=== PATIENT | male | born 1940 | race Hispanic/Latino ===

== ENCOUNTER 2018-03-11 13:28 | Inpatient (IN) | payer MEDICARE ==
[~2018-03-11] VITALS: Ht 157.5 cm; Wt 90.0 kg
[~2018-03-11 13:28] MED LIST: Z.0.AMARYL2 MG PO; Z.0.HYDROCHLOROTHIA2; Z.0.LISINOPRIL10 MG PO; Z.0.LOVASTATIN40 MG PO; Z.0.NIASPAN500 MG PO; Z.0.PANTOPRAZOLE SO4 PO
[2018-03-11] MEDS ORDERED: ACETAMINOPHEN 325 MG TAB PO ONE (14:00)
--- NOTE | 2018-03-11 14:26 | Diagnostic Imaging Report ---
PROCEDURE: Frontal and lateral views of the chest. COMPARISON: Patients [facility], , CHEST SINGLE (PORTABLE), 02/03/2017, 21:47. INDICATIONS: DIZZY, CHEST PAIN FOR 1 WEEK FINDINGS: Lines/tubes: None. Lungs: Mild bibasilar subsegmental atelectasis. There is no evidence of pneumonia or pulmonary edema. Pleura: There is no pleural effusion or pneumothorax. Heart and mediastinum: The heart and the mediastinum are normal. Bones: No acute bony abnormality. IMPRESSION: 1. Mild bibasilar subsegmental atelectasis Sharon Cid M.D. Dictated by: Sharon Cid M.D. on 03/11/2018 at 14:28 Electronically approved by: Sharon Cid M.D. on 03/11/2018 at 14:28
[2018-03-11] MEDS ORDERED: SODIUM CHLORIDE 0.9% 500ML 500 ML IV ONE ×2 (14:45→18:00)
[2018-03-11 14:49] LABS: BASOPHILS % 0.1 % (0.0-1.0); EOSINOPHILS % 0.4 % (0.0-6.0); HEMATOCRIT 41.3 % (38.2-49.6); HEMOGLOBIN 14.4 g/dL (14.0-18.0); LYMPHOCYTES # (AUTO) 0.2 (1.0-3.2); LYMPHOCYTES % 2.6 % (18.0-39.1); MEAN CORPUSCULAR HEMOGLOBIN 30.8 pg (28-32); MEAN CORPUSCULAR HGB CONC 34.9 g/dL (31-35); MEAN CORPUSCULAR VOLUME 88.4 fL (81-99); MONOCYTES # (AUTO) 0.4 (0.2-0.8); MONOCYTES % 4.7 % (4.4-11.3); NEUTROPHILS # (AUTO) 7.4 (2.1-6.9); NEUTROPHILS % 91.8 % (38.7-80.0); PLATELET COUNT 178 x10e3/uL (140-360); RED BLOOD COUNT 4.67 x10e6/uL (4.3-5.7); RED CELL DISTRIBUTION WIDTH 13.3 % (11.7-14.4)
[2018-03-11 15:10] LABS: ALBUMIN 3.3 g/dL (3.5-5.0); ALBUMIN/GLOBULIN RATIO 0.8 (0.8-2.0); ANION GAP 15.5 mmol/L (8-16); CALCIUM 9.2 mg/dL (8.4-10.2); CREATININE, SERUM 1.73 mg/dL (0.72-1.25); POTASSIUM 3.5 mmol/L (3.5-5.1)
[2018-03-11] MEDS ORDERED: SODIUM CHLORIDE 0.9% 500ML 500 ML ONE (17:07)
--- NOTE | 2018-03-11 17:55 | Diagnostic Imaging Report ---
EXAM: Right Upper Quadrant Ultrasound INDICATION: Elevated liver enzymes COMPARISON: None. TECHNIQUE: Transverse and longitudinal images of the right upper abdomen were obtained. FINDINGS: Liver: Size: 15.2 cm in the right midclavicular line, normal Appearance: Mildly increased echogenicity, smooth contour Mass: No focal masses Gallbladder: Stones/Sludge: Shadowing calculi are present within the gallbladder lumen. There is also ringdown artifact along the gallbladder wall which may represent adenomyomatosis. Wall: 0.5 cm, thickened. Appearance: No wall thickening, pericholecystic fluid or hydrops. Sonographic Hanson's Sign: Negative Bile Ducts: Intrahepatic Ducts: No dilatation Extrahepatic Ducts: Common bile duct measures 0.4 cm, no dilatation Pancreas: Visualized portions of the pancreatic head, neck and proximal body are normal. Kidneys: Length: Right 12.6 cm Echogenicity: Normal Collecting System: No hydronephrosis Stone: None Cyst/Mass: None Vessels: Aorta: Visualized portions are normal Inferior Vena Cava: Visualized portions are normal Main Portal Vein: 0.9 cm, normal size with hepatopetal flow. Free Fluid: No ascites or pleural effusion IMPRESSION: 1. Cholelithiasis. Gallbladder wall thickening may be in part related to adenomyomatosis, however, chronic cholecystitis is within the differential diagnosis. No biliary dilatation. 2. Mildly increased echogenicity of the hepatic parenchyma may represent steatosis. Signed by: Dr. Sharon Cid M.D. on 03/11/2018 5:51 PM
[2018-03-11] MEDS ORDERED: SODIUM CHLORIDE 0.9% 1000ML 500 ML IV SCH (18:00)
[2018-03-11 18:07] LABS: CLARITY,URINE SL CLOUDY (CLEAR); COLOR,URINE YELLOW (YELLOW); LEUKOCYTE ESTERASE ,URINE NEGATIVE (NEGATIVE); NITRITE,URINE NEGATIVE (NEGATIVE)
[2018-03-11 18:08] LABS: BILIRUBIN,URINE 1+ (NEGATIVE); KETONES,URINE NEGATIVE (NEGATIVE); PROTEIN,URINE DIPSTICK NEGATIVE (NEGATIVE); URINE UROBILINOGEN 1 mg/dL (0.2 - 1)
[2018-03-11 18:16] LABS: EPITHELIAL CELLS,URINE RARE /LPF; MUCUS,URINE MODERATE (RARE); RBC,URINE 0-5 /HPF (0-5); WBC,URINE (MAN) 0-5 /HPF (0-5)
[2018-03-11] MEDS ORDERED: ONDANSETRON HCL INJ 2 MG/ML VIAL IV PRN (18:30)
[2018-03-11] MEDS ORDERED: ACETAMINOPHEN 325 MG TAB PO PRN (18:30)
[2018-03-11] MEDS ORDERED: ONDANSETRON HCL 4 MG ORAL DISINTEGRATING TAB PO PRN (18:45)
[2018-03-11] MEDS: CEFEPIME HCL 1 GM VIAL IV SCH (19:14)
[2018-03-11] MEDS: METRONIDAZOLE 500MG/NS 100ML 100 ML IV SCH (19:14)
[2018-03-11] MEDS: SODIUM CHLORIDE 0.9% 1000ML 1,000 ML IV SCH (19:14)
--- OUTSIDE RECORDS SUMMARY | 2018-03-11 20:09 | XMS REPORT ---
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 Allergies, Adverse Reactions, Alerts This patient has no known allergies or adverse reactions. Medications This patient has no known medications. Results Test Description Test Time Test Comments Text Results Atomic Results Result Comments CHEST 2 VIEWS [place] [address] Patient Name: JOE NEGRETE MR #: [id number] : 1940 Age/Sex: 77/M Req #: [id number] Adm Physician: Ordered by: HIRAL SEYMOUR MD Report #: [id number] Location: ER Room/Bed: Procedure: [id number] DX/CHEST 2 VIEWS Exam Date: Exam Time: REPORT STATUS: Signed PROCEDURE: Frontal and lateral views of the chest. COMPARISON: [facility], DX, CHEST SINGLE (PORTABLE), 2016, 21:47. INDICATIONS: DIZZY, CHEST PAIN FOR 1 WEEK FINDINGS: Lines/tubes: None. Lungs: Mild bibasilar subsegmental atelectasis. There is no evidence of pneumonia or pulmonary edema. Pleura: There is no pleural effusion or pneumothorax. Heart and mediastinum: The heart and the mediastinum are normal. Bones: No acute bony abnormality. IMPRESSION: 1. Mild bibasilar subsegmental atelectasis Sharon Benitez M.D. Dictated by: Sharon Benitez M.D. on 03/11/2018 at 14:28 Electronically approved by: Sharon Benitez M.D. on 03/11/2018 at 14:28 Dictated By: YEISON BENITEZ MD, MD 27 COPY TO: HIRAL SEYMOUR MD US ABDOMEN LIMITED [place] [address] Patient Name: JOE NEGRETE MR #: [id number] : 1940 Age/Sex: 77/M Req #: [id number] Adm Physician: Ordered by: HIRAL SEYMOUR MD Report #: [id number] Location: ER Room/Bed: Procedure: [id number] US/US ABDOMEN LIMITED Exam Date: 03/11/18 Exam Time: 1700 REPORT STATUS: Signed EXAM: Right Upper Quadrant Ultrasound INDICATION: Elevated liver enzymes COMPARISON: None. TECHNIQUE: Transverse and longitudinal images of the right upper abdomen were obtained. FINDINGS: Liver: Size: 15.2 cm in the right midclavicular line, normal Appearance: Mildly increased echogenicity, smooth contour Mass: No focal masses Gallbladder: Stones/Sludge: Shadowing calculi are present within the gallbladder lumen. There is also ringdown artifact along the gallbladder wall which may represent adenomyomatosis. Wall: 0.5 cm, thickened. Appearance: No wall thickening, pericholecystic fluid or hydrops. Sonographic Hanson's Sign: Negative Bile Ducts: Intrahepatic Ducts: No dilatation Extrahepatic Ducts: Common bile duct measures 0.4 cm, no dilatation Pancreas: Visualized portions of the pancreatic head, neck and proximal body are normal. Kidneys: Length: Right 12.6 cm Echogenicity: Normal Collecting System: No hydronephrosis Stone: None Cyst/Mass: None Vessels: Aorta: Visualized portions are normal Inferior Vena Cava: Visualized portions are normal Main Portal Vein: 0.9 cm, normal size with hepatopetal flow. Free Fluid: No ascites or pleural effusion IMPRESSION: 1. Cholelithiasis. Gallbladder wall thickening may be in part related to adenomyomatosis, however, chronic cholecystitis is within the differential diagnosis. No biliary dilatation. 2. Mildly increased echogenicity of the hepatic parenchyma may represent steatosis. Signed by: Dr. Sharon Benitez M.D. on 03/11/2018 5:51 PM Dictated By: YEISON BENITEZ MD, MD 50 Transcribed By : MARVIN on 03/11/181750 COPY TO: HIRAL SEYMOUR MD
[2018-03-12] VITALS (9 sets, daily range): BP systolic 115–138; BP diastolic 62–69
[2018-03-12] MEDS: METRONIDAZOLE 500MG/NS 100ML 100 ML IV SCH ×3 (03:40→18:30)
[2018-03-12 06:10] LABS: BASOPHILS % 0.4 % (0.0-1.0); EOSINOPHILS # (AUTO) 0.1 (0.0-0.4); EOSINOPHILS % 0.5 % (0.0-6.0); HEMATOCRIT 38.2 % (38.2-49.6); LYMPHOCYTES # (AUTO) 0.8 (1.0-3.2); LYMPHOCYTES % 7.6 % (18.0-39.1); MEAN CORPUSCULAR HEMOGLOBIN 30.8 pg (28-32); MEAN CORPUSCULAR VOLUME 90.5 fL (81-99); MONOCYTES % 9.6 % (4.4-11.3); NEUTROPHILS # (AUTO) 8.5 (2.1-6.9); NEUTROPHILS % 81.6 % (38.7-80.0); PLATELET COUNT 171 x10e3/uL (140-360); RED BLOOD COUNT 4.22 x10e6/uL (4.3-5.7); RED CELL DISTRIBUTION WIDTH 13.5 % (11.7-14.4)
[2018-03-12 06:36] LABS: ALBUMIN 2.8 g/dL (3.5-5.0); ALBUMIN/GLOBULIN RATIO 0.8 (0.8-2.0); ANION GAP 11.1 mmol/L (8-16); CALCIUM 8.6 mg/dL (8.4-10.2); CREATININE, SERUM 1.63 mg/dL (0.72-1.25); POTASSIUM 4.1 mmol/L (3.5-5.1)
[2018-03-12 07:19] LABS: CHOL/HDL RATIO 3.8 (3.9-4.7)
[2018-03-12] MEDS: INSULIN REGULAR, HUMAN 100 UNIT/1 ML 3ML VIAL SQ SCH ×4 (07:30→20:47)
--- NOTE | 2018-03-12 07:48 | History and Physical ---
PRIMARY CARE PHYSICIAN: Dr. Romero CHIEF COMPLAINT: Chills. HISTORY OF PRESENT ILLNESS: This is a 77-year-old man with a history of diabetes mellitus, now developing chills at home prompting visit to the hospital. His chills have been ongoing for about 3 days. No nausea, vomiting or diarrhea. No recent travel in the last 2 months. No sick contacts. No chest pain. PAST MEDICAL HISTORY: Diabetes mellitus, type 2, hypertension, chronic kidney disease, stage 3/diabetic nephropathy. PAST SURGICAL HISTORY: Left nephrectomy, prostatectomy. ALLERGIES: PER ELECTRONIC MEDICAL RECORD. FAMILY HISTORY/SOCIAL HISTORY: Patient is . He has 8 children. Drinks about 1-2 beers on the weekends only. Prior years, he drank more beer, but mainly on the weekends. No cigarettes or illicits. He is a retired [employer]. MEDICATIONS: Per electronic medical record. REVIEW OF SYSTEMS: Denies any dizziness or chest pain. PHYSICAL EXAMINATION VITAL SIGNS: Reviewed. GENERAL: A tired-appearing man resting in bed. HEENT: Anicteric. Pupils respond to light. No oral lesions. CARDIOVASCULAR: Normal S1 and S2. LUNGS: Moderate breath sounds. ABDOMEN: Soft, nontender and nondistended. Negative Hanson's sign. EXTREMITIES: No edema or calf tenderness. NEUROLOGICAL: He is alert and oriented times 3. Moving all extremities. LABS: Reviewed. MEDICATIONS: Reviewed. ASSESSMENT AND PLAN: This is a 77-year-old man with: 1. Acute transaminitis: Rehydrate and reassess. Obtain hepatitis panel. 2. Hyperbilirubinemia: Again, obtain hepatitis panel. Obtain HIDA scan. 3. Cholelithiasis with gallbladder wall thickening. Obtain HIDA scan and further assess. 4. Acute kidney injury in the setting of chronic kidney disease, stage 3/diabetic nephropathy: Rehydrate and reassess. 5. Diabetes mellitus, type 2: Obtain hemoglobin A1c and lipid panel. 6. Severe sepsis present on admission with fever, severe tachycardia and hypotension: Continue Flagyl and cefepime. Follow up cultures. 7. Hyperlipidemia: Continue statin. 8. Prophylaxis: Will continue proton pump inhibitor and use sequential compression devices. 9. Disposition: HIDA scan today. Continue intravenous fluids. Reassess liver function tests after the acute hepatitis panel. Job#: [id number] KYREE
[2018-03-12] MEDS: PANTOPRAZOLE SOD 40 MG TABEC PO SCH (08:17)
[2018-03-12] MEDS ORDERED: NIACIN PO SCH (09:00)
[2018-03-12] MEDS: SODIUM CHLORIDE 0.9% 1000ML 1,000 ML IV SCH ×2 (09:00→17:14)
[2018-03-12] MEDS ORDERED: LOVASTATIN PO SCH (09:00)
[2018-03-12] MEDS: MORPHINE SULFATE 2 MG/ML SYR IV PRN (13:16)
[2018-03-12] MEDS: DEXTROSE 50% SYRINGE 50 ML IV PRN ×2 (14:20→20:37)
--- NOTE | 2018-03-12 15:47 | Diagnostic Imaging Report ---
EXAM: HIDA Scan INDICATION: 77 M with abnormal liver function tests Report: Following the administration of 7.5 mCi of Tc-99m mebrofenin, dynamic images of the abdomen in the anterior projection were obtained through 100 minutes. Perfusion of the liver is normal. Extraction of tracer from the blood pool by the liver parenchyma is mildly prolonged. Tracer does not appear in the biliary tract through 100 minutes. Morphine sulfate 4 mg was given IV slow push after 100 minutes (thinking there might be some tracer in the biliary tract but there was not) and additional imaging was obtained through 30 minutes. Again no tracer is seen in the biliary tract. Impression: Scan findings show cholestasis. Without tracer appearing in the biliary tract, filling of the gallbladder cannot be assessed. Signed by: Dr. Adela Diallo M.D. on 03/12/2018 3:43 PM
[2018-03-12] MEDS: CEFEPIME HCL 1 GM VIAL IV SCH (18:20)
[2018-03-12] MEDS: SIMVASTATIN 20 MG TAB PO SCH (20:46)
[2018-03-12] MEDS: NIACIN 500 MG TABSR PO SCH (20:46)
[2018-03-12] MEDS: DEXTROSE 5%/0.45% SOD CHL 1,000 ML IV SCH (21:15)
[2018-03-13] VITALS (8 sets, daily range): BP systolic 122–147; BP diastolic 62–73
[2018-03-13] MEDS: METRONIDAZOLE 500MG/NS 100ML 100 ML IV SCH ×3 (02:00→17:36)
[2018-03-13] MEDS: SODIUM CHLORIDE 0.9% 1000ML 1,000 ML IV SCH (05:53)
[2018-03-13] MEDS: INSULIN REGULAR, HUMAN 100 UNIT/1 ML 3ML VIAL SQ SCH ×4 (07:30→20:25)
[2018-03-13] MEDS: PANTOPRAZOLE SOD 40 MG TABEC PO SCH (09:47)
[2018-03-13 12:15] LABS: ALBUMIN 2.9 g/dL (3.5-5.0); BILIRUBIN,DIRECT 1.5 mg/dL (0.0-0.5)
--- NOTE | 2018-03-13 15:01 | Diagnostic Imaging Report ---
MRCP CPT code: 81242 History: Chills, type 2 diabetes, stage III diabetic nephropathy, left nephrectomy, cholestatic picture on HIDA scan Comparison: Hida scan 03/12/2018, right upper quadrant ultrasound 03/11/2018. Technique: Multiplanar, multisequence images of the abdomen were obtained per MRCP protocol. 3D volume rendered reformation images of the biliary tree were performed. No intravenous gadolinium was administered. Findings: Biliary tree: No intrahepatic biliary ductal dilatation. Cystic duct is normal in morphology and appears patent.. Common bile duct: Measures 5 mm in diameter and tapers as it approaches the ampulla. No evidence of stricture or beading of the biliary tree. No intraluminal filling defect. The pancreas duct is normal in diameter and morphology. Gallbladder: Present and contains multiple subcentimeter gallstones. There is diffuse gallbladder wall thickening and several punctate foci of increased T2 signal in the fundus which could represent adenomyomatosis. Liver: No significant steatosis. No hepatic mass. Spleen: Normal size and signal without mass Pancreas: Normal T2 signal without mass or ductal dilatation. Kidneys: The left kidney is absent. No mass in the nephrectomy bed. The right kidney demonstrates an extrarenal pelvis and mild perinephric inflammation. High T2 signal lesion in the upper pole measures 12 mm. High T2 signal lesion in the lower pole measures 2 to 3 mm. These were not visible on ultrasound. Adrenal glands: No evidence of mass. Bowel: Stomach and visualized portions of the small bowel and large bowel are normal in diameter with normal wall thickness. Lymph nodes: No lymphadenopathy. Peritoneum/retroperitoneum: No evidence of free fluid or fluid collection. Lung bases: Clear. Bones: Diffuse degenerative disc disease. There is mild extra scoliosis of the lumbar spine. Marrow signal is normal. No focal osseous lesions. Soft tissues: Hernia through the posterolateral left abdominal wall contains fat with an aperture of 3.2 cm. IMPRESSION: 1. No evidence of choledocholithiasis, biliary ductal dilatation or biliary stricture. 2. Cholelithiasis and thickening of the gallbladder almaraz with suspicion for adenomyomatosis. 3. Right extrarenal pelvis. Subcentimeter high T2 signal lesions in the right kidney may represent cysts. Thank you for your referral. Signed by: Dr. Jasen Merino MD on 03/13/2018 2:57 PM
[2018-03-13] MEDS: DEXTROSE 5%/0.45% SOD CHL 1,000 ML IV SCH ×2 (16:54→22:59)
[2018-03-13] MEDS: CEFEPIME HCL 1 GM VIAL IV SCH (17:36)
[2018-03-13] MEDS: NIACIN 500 MG TABSR PO SCH (20:30)
[2018-03-13] MEDS: SIMVASTATIN 20 MG TAB PO SCH (20:30)
[2018-03-14] VITALS (7 sets, daily range): BP systolic 130–156; BP diastolic 63–78
[2018-03-14] MEDS: METRONIDAZOLE 500MG/NS 100ML 100 ML IV SCH ×3 (01:20→18:38)
[2018-03-14] MEDS: MORPHINE SULFATE 2 MG/ML SYR IV PRN ×2 (01:26→18:12)
--- NOTE | 2018-03-14 07:02 | Consultation ---
DATE OF CONSULTATION: March 13, 2018 HISTORY OF PRESENT ILLNESS: Mr. Iverson is a 77-year-old gentleman with history of diabetes, chronic renal insufficiency, hypertension, admitted when he presented to the hospital with complaint of chills and found to have abnormal liver enzymes. Subsequently, ultrasound revealed thickened gallbladder wall suggestive of chronic cholecystitis. I talked to the patient. He denied nausea, vomiting or abdominal pain. He denied any fever. He denied any acid reflux or heartburn. He denied trouble with his bowel or lower GI bleed. Subsequently, HIDA scan was ordered which also was positive with the material taken by the liver, but not secreted through the cystic duct or the common bile duct. ALLERGIES: NIL. MEDICINES: He is on Protonix, Maxipime, morphine, Zofran, niacin and Zocor. PAST SURGICAL HISTORY: Left nephrectomy and prostatectomy. PHYSICAL EXAMINATION GENERAL: Awake, alert, oriented, comfortable. VITAL SIGNS: Temperature 98.5, pulse 57, respiratory rate 18, blood pressure 147/67. HEENT: Sclerae normal, mildly yellow in color. NECK: Supple. No node or mass. LUNGS: Clear to auscultation. HEART: Regular-regular. ABDOMEN: Soft, obese, but not tender. No mass, no organomegaly. No signs of acute abdomen. EXTREMITIES: No edema. CENTRAL NERVOUS SYSTEM: Motor function was intact. IMPRESSION: Based on the ultrasound finding and the hydroxy iminodiacetic acid scan and the blood test which came to be total bilirubin 3.6, AST 119, ALT 134 and alkaline phosphatase 321, patient most likely is suffering from chronic cholecystitis and the fact that he is a diabetic, explained lack of abdominal discomfort. I will order magnetic resonance cholangiopancreatography and based on that will decide on the next step, whether an endoscopic retrograde cholangiopancreatography or surgical consultation. In the meantime, will keep him on antibiotic and liquid diet. Job#: [id number]
[2018-03-14] MEDS: INSULIN REGULAR, HUMAN 100 UNIT/1 ML 3ML VIAL SQ SCH ×4 (08:00→20:16)
--- NOTE | 2018-03-14 08:18 | Progress Note ---
DATE: March 13, 2018 TIME: 7 a.m. OVERNIGHT: No events. REVIEW OF SYSTEMS: Denies any dizziness or chest pain. PHYSICAL EXAMINATION VITAL SIGNS: Reviewed. GENERAL: A tired-appearing man resting in bed. HEENT: Anicteric. CARDIOVASCULAR: Normal S1 and S2. LUNGS: Moderate breath sounds. ABDOMEN: Soft and nondistended. Negative Hanson's sign. EXTREMITIES: No edema. SKIN: Dry. PSYCHIATRIC: Normal affect. LABS: Reviewed. MEDICATIONS: Reviewed. ASSESSMENT: A 77-year-old man with: 1. Acute transaminitis. 2. Hyperbilirubinemia. 3. Cholelithiasis with gallbladder wall thickening: HIDA scan showing cholestasis. No trace is seen in the biliary tract. 4. Diabetes mellitus, type 2. 5. Severe sepsis, present on admission. 6. Hyperlipidemia. PLAN 1. Will follow up recommendations. 2. MRCP will be ordered. 3. Continue current care. Follow up findings. Job#: [id number] KYREE
--- NOTE | 2018-03-14 08:20 | Progress Note ---
DATE: March 14, 2018 TIME: 7:35 a.m. OVERNIGHT: No events. REVIEW OF SYSTEMS: Denies any dizziness or chest pain. VITAL SIGNS: Reviewed. PHYSICAL EXAMINATION GENERAL: A tired-appearing man resting in bed. HEENT: Anicteric. CARDIOVASCULAR: Normal S1 and S2. LUNGS: Moderate breath sounds. ABDOMEN: Soft, nontender. EXTREMITIES: No edema. SKIN: Dry. PSYCHIATRIC: Normal affect. LABS: Reviewed. MEDICATIONS: Reviewed. ASSESSMENT AND PLAN: A 77-year-old man. 1. Acute transaminitis. 2. Cholelithiasis. 3. Gallbladder wall thickening. 4. Hyperbilirubinemia. 5. Cholestasis. 6. Acute kidney injury in the setting of chronic kidney disease, stage 3/diabetic nephropathy. 7. Diabetes mellitus, type 2. 8. Severe sepsis present on admission. 9. Hyperlipidemia. PLAN 1. Cholecystectomy is pending. 2. All cultures remain negative. 3. Acute kidney injury is improved. Will obtain labs this morning. 4. Hemoglobin A1c is 6.2, LDL 56, and triglycerides 65. 5. Await surgical management. Job#: [id number]
[2018-03-14] MEDS: PANTOPRAZOLE SOD 40 MG TABEC PO SCH (08:55)
[2018-03-14] MEDS ORDERED: BUPIVACAINE 0.25%/EPI 30ML SDV INJ ONE (13:50)
[2018-03-14] MEDS ORDERED: FAMOTIDINE 20 MG/2 ML VIAL IV ONE (13:56)
[2018-03-14] MEDS ORDERED: SODIUM CHLORIDE 0.9% 50ML 50 ML ONE (13:57)
--- NOTE | 2018-03-14 16:06 | Consultation ---
DATE OF CONSULTATION: March 14, 2018 SURGICAL CONSULTATION CHIEF COMPLAINT: Abdominal pain. HISTORY OF PRESENT ILLNESS: The patient is a 77-year-old male with a 3-day to 4-day history of chills without abdominal pain, nausea or vomiting. The patient denied diarrhea. He had a similar episode in the recent past with chills. PAST MEDICAL HISTORY: Significant for hypertension, diabetes, renal insufficiency. SURGICAL HISTORY: Positive for left nephrectomy and prostatectomy. ALLERGIES: HE HAS NO KNOWN DRUG ALLERGIES. SOCIAL HABITS: The patient denies smoking or alcohol abuse. REVIEW OF SYSTEMS: No chest pain or shortness of breath or cough. PHYSICAL EXAMINATION: VITALS: Stable. He is afebrile. GENERAL: Patient is awake, alert, in no apparent discomfort. HEENT: Sclerae nonicteric. NECK: Supple. LUNGS: Clear. HEART: Regular rate and rhythm. ABDOMEN: Soft, nontender. EXTREMITIES: Without cyanosis or edema. The patient's white cell count is 10.4, hemoglobin of 13. Creatinine of 2.3 with alkaline phosphatase to 292. Transaminase of 115. Patient has gallbladder wall thickening with gallstones and polyps. HIDA scan showed decreased uptake by the liver, suggesting cholestasis. MRCP, 5 mm sized bile ducts with no biliary duct dilatations, stricture or intraluminal defects. ASSESSMENT: Cholelithiasis and probable chronic cholecystitis. PLAN: Laparoscopic cholecystectomy. Attendant risks discussed with patient and family. Job#: [id number] EV
--- NOTE | 2018-03-14 16:22 | Operative Report ---
DATE OF PROCEDURE: March 14, 2018 PREOPERATIVE DIAGNOSIS: Acute cholecystitis. POSTOPERATIVE DIAGNOSIS: Acute cholecystitis. OPERATIVE PROCEDURE: Laparoscopic cholecystectomy. TELEX OPERATOR: None. ANESTHESIA: General endotracheal. INDICATIONS: The patient is a 77-year-old male with history of chills, who was found to have gallstones and gallbladder wall thickening. Despite elevated liver enzymes, the patient's MRCP was negative for a bile duct stone or biliary dilatation. At this point, the family and patient have consented for laparoscopic cholecystectomy with the attendant risks discussed. PROCEDURE FINDINGS: Mildly dilated cystic duct approximately 6 to 7 mm. DESCRIPTION OF PROCEDURE: The patient was brought to the OR, intubated. The abdomen was prepped with alcohol and draped in sterile fashion. A supraumbilical incision was made, and there was an umbilical hernia, which was opened, removing the excess preperitoneal fat and hernia sac and used as a fascial defect for the 10 mm port site. Insufflation begun. Under direct vision, other ports were placed in the midepigastric and right upper quadrant. Gallbladder chronically inflamed but graspable. Fundus retracted in cephalad direction. Neck of the gallbladder retracted laterally. With blunt dissection, cystic artery was triple-clipped, divided. Cystic duct was dissected down to the junction of the common bile duct, and the cystic duct was then triple-clipped approximately 1 cm away from the junction. The cystic duct was noted to be dilated approximately 6 mm in diameter. The cystic duct divided between clips and gallbladder detached from the liver with cautery and taken out through the umbilical port site using an Endopouch. Operative field was then irrigated. Hemostasis achieved with cautery. All ports removed under direct vision. Fascial closure with interrupted 0 Vicryl. Skin was closed with subcuticular stitch. The patient was extubated and transported to the recovery room in guarded condition. Estimated blood loss 10 mL. Job#: [id number] EV
[2018-03-14] MEDS ORDERED: FENTANYL CITRATE/PF 100MCG/2 ML INJ ONE (16:56)
[2018-03-14] MEDS ORDERED: MIDAZOLAM HCL 2 MG/2 ML VIAL ONE (16:56)
[2018-03-14] MEDS ORDERED: SUCCINYLCHOLINE 200 MG/10 ML SYR IV ONE (17:03)
[2018-03-14] MEDS ORDERED: GLYCOPYRROLATE INJ 1MG/ 5 ML SYR IV ONE (17:03)
[2018-03-14] MEDS ORDERED: ONDANSETRON HCL INJ 2 MG/ML VIAL IV ONE (17:03)
[2018-03-14] MEDS ORDERED: EPHEDRINE SULFATE INJ 50 MG/10 ML SYR IV ONE (17:03)
[2018-03-14] MEDS ORDERED: SEVOFLURANE INHAL SOLN 250 ML PEN BTL INH ONE (17:03)
[2018-03-14] MEDS ORDERED: ACETAMINOPHEN 1000 MG/100 ML IV ONE (17:03)
[2018-03-14] MEDS ORDERED: DEXAMETHASONE SOD PHOS INJ 4 MG/ML VIAL IV ONE (17:03)
[2018-03-14] MEDS ORDERED: LIDOCAINE HCL 2% LOCAL INJ 5 ML SDV VIAL INJ ONE (17:03)
[2018-03-14] MEDS ORDERED: NEOSTIGMINE 5 MG/5ML SYR IV ONE (17:03)
[2018-03-14] MEDS ORDERED: ROCURONIUM BROMIDE 10 MG/ML 5ML VIAL IV ONE (17:03)
[2018-03-14] MEDS ORDERED: PROPOFOL IV EMULSION 10 MG/ML 20 ML VIAL IV ONE (17:03)
[2018-03-14] MEDS ORDERED: LIDOCAINE HCL 2% JELLY 5 ML TUBE TOP ONE (17:03)
[2018-03-14] MEDS: CEFEPIME HCL 1 GM VIAL IV SCH (18:11)
[2018-03-14] MEDS ORDERED: MORPHINE SULFATE 2 MG/ML SYR IV PRN (19:15)
[2018-03-14] MEDS: SIMVASTATIN 20 MG TAB PO SCH (20:36)
[2018-03-14] MEDS: NIACIN 500 MG TABSR PO SCH (20:36)
[2018-03-15] VITALS (7 sets, daily range): BP systolic 123–141; BP diastolic 46–63
[2018-03-15] MEDS: METRONIDAZOLE 500MG/NS 100ML 100 ML IV SCH ×3 (01:29→17:42)
[2018-03-15 06:03] LABS: ALANINE AMINOTRANSFERASE 83 IU/L (0-55); ALBUMIN 2.7 g/dL (3.5-5.0); ALBUMIN/GLOBULIN RATIO 0.8 (0.8-2.0); ALKALINE PHOSPHATASE 223 IU/L (40-150); ANION GAP 13.2 mmol/L (8-16); BLOOD UREA NITROGEN 11 mg/dL (7-26); BUN/CREATININE RATIO 10 (6-25); CALCIUM 8.9 mg/dL (8.4-10.2); CARBON DIOXIDE 25 mmol/L (22-29); CHLORIDE 104 mmol/L (98-107); CREATININE, SERUM 1.12 mg/dL (0.72-1.25); EST GLOMERULAR FILTRATION RATE > 60 ML/MIN (60-); GLUCOSE 179 mg/dL (74-118); POTASSIUM 4.2 mmol/L (3.5-5.1); SODIUM 138 mmol/L (136-145)
[2018-03-15] MEDS ORDERED: KEFLEX500 MG PEG (07:09)
[2018-03-15] MEDS ORDERED: FLAGYL500 MG PO (07:09)
[2018-03-15] MEDS ORDERED: TYLENOL WITH C1 EACH PO (07:09)
--- NOTE | 2018-03-15 07:41 | Discharge Summary ---
PRINCIPAL DIAGNOSES 1. Acute transaminitis. 2. Acute cholecystitis, status post laparoscopic cholecystectomy. 3. Cholelithiasis. 4. Hyperbilirubinemia. 5. Cholestasis. 6. Acute kidney injury in the setting of chronic kidney disease, stage 3. 7. Diabetic nephropathy. 8. Diabetes mellitus, type 2. Glycosylated hemoglobin is 6.2, low-density lipoprotein 56, triglycerides 65. 9. Severe sepsis present on admission. SECONDARY DIAGNOSIS: Diabetes mellitus, type 2. CHIEF COMPLAINT: Abdominal pain. HISTORY OF PRESENT ILLNESS: This is a 77-year-old male with abdominal pain. Please refer to the H and P for further details. HOSPITAL COURSE: The patient was found to have acute transaminitis. Also had cholelithiasis and acute cholecystitis. Underwent laparoscopic cholecystectomy. Doing better. The diet is being advanced. He had diabetes mellitus, type 2. Hemoglobin A1c was 6.2, LDL 56 and triglycerides 65. Also had diabetic nephropathy and chronic kidney disease, stage 3. He had acute kidney injury, which has been improving. The patient is doing better and currently appropriate for discharge with followup. DISCHARGE MEDICATIONS: Per electronic medical record. FOLLOWUP 1. With primary care doctor in 1 week. 2. Follow up with Dr. Arellano as directed. Job#: [id number]
[2018-03-15] MEDS: INSULIN REGULAR, HUMAN 100 UNIT/1 ML 3ML VIAL SQ SCH ×3 (08:15→16:30)
[2018-03-15] MEDS: PANTOPRAZOLE SOD 40 MG TABEC PO SCH (08:35)
[2018-03-15] MEDS: DEXTROSE 5%/0.45% SOD CHL 1,000 ML IV SCH (09:15)
--- NOTE | 2018-03-18 09:12 | Progress Note ---
DATE: March 15, 2018 Mr. Iverson is doing well 1 day post cholecystectomy, lying in bed comfortably, no discomfort. He is tolerating his diet well. He is afebrile and hemodynamically stable. Has no complaint. Will sign off for now and will continue to see as an outpatient. Job#: [id number]
== END 2018-03-15 18:42 | disposition home or self-care (01) | DRG 854 ==
LOC: ER 13:28 → ERHOLD 20:05 → IMCU 03-12 00:17
PROVIDERS: ADMIT Internal Medicine; ATTEND Internal Medicine
PROC: 0FT44ZZ Resection of Gallbladder, Percutaneous Endoscopic Approach (ICD-10-PCS; principal; 2018-03-14 14:00)
DX: A41.9 Sepsis, unspecified organism (principal); N17.9 Acute kidney failure, unspecified; K80.13 Calculus of gallbladder with acute and chronic cholecystitis with obstruction; R74.0 Nonspecific elevation of levels of transaminase and lactic acid dehydrogenase [LDH]; E11.22 Type 2 diabetes mellitus with diabetic chronic kidney disease; R65.20 Severe sepsis without septic shock; I12.9 Hypertensive chronic kidney disease with stage 1 through stage 4 chronic kidney disease, or unspecified chronic kidney disease; N18.3 Chronic kidney disease, stage 3 (moderate); Z90.5 Acquired absence of kidney
CPT/HCPCS: 36415; 71046; 74181; 76705; 78227; 80053; 80061; 80076; 81001; 82150; 82948; 83036; 83605; 83690; 85025; 87040; 87400; 88304; 96361; 96367; 96372; 96376; 99284; A9537; J0692; J1100; J2001; J2250; J2270; J2405; J7030; J7040; J7799

== ENCOUNTER 2020-03-29 09:10 | Emergency (ER) | payer MEDICARE ==
[~2020-03-29] VITALS: Ht 160 cm; Wt 89.8 kg
[~2020-03-29 09:10] MED LIST changes: +FLAGYL500 MG PO; +KEFLEX500 MG PEG; +TYLENOL WITH C1 EACH PO
--- OUTSIDE RECORDS SUMMARY | 2020-03-29 09:13 | XMS REPORT ---
Author Author [facility] t Organization [facility] Address [address] Rig[address]. [address] [place] [address] Phone Unavailable Care Team Providers Care Materials Specialist Name Role Phone AZUCENA, (NON STAFF) [place] PCP STAN CARTAGENA Attphys Unavailable STAN CARTAGENA Admcar Unavailable Payers Payer Name Policy Type Policy Number Effective Date Expiration Date Marlon Estrada [facility] [id number] 2017 00:00:00 [facility] Problems Condition Name Condition Details Condition Category Status Onset Date Resolution Date Last Treatment Date Treating Clinician Comments Source [id number]-[id number] renal failure Acute on chronic renal failure Problem Active [facility] Chest pain Chest pain Problem Active [facility] Dyspnea Dyspnea Problem Active [facility] Elevated creatine kinase level Elevated CK Problem Active [facility] Hypoglycemia Hypoglycemia Problem Active [facility] Allergies, Adverse Reactions, Alerts This patient has no known allergies or adverse reactions. Medications Ordered Medication Name Filled Medication Name Start Date Stop Da te Current Medication? Ordering Clinician Indication Dosage Frequency Signature (SIG) Comments Components Source Acetaminophen With Codeine (Tylenol With Codeine #3 Ta blet) 1 Each Tablet Acetaminophen With Codeine (Tylenol With Codeine #3 Tablet) 1 Each Tablet 2018-03-15 00:00:00 2018-03-20 00:00:00 Arielle Cartagena Md 300 Every 8 Hours as needed for Pain [facility] Cephalexin Monohydrate (Keflex) 500 Mg Capsule Cephale titi Monohydrate (Keflex) 500 Mg Capsule 2018-03-15 00:00:00 2018-03-20 00:00:00 Arielle Cartagena Md 500 Daily [facility] Metronidazole (Flagyl) 500 Mg Tablet Metronidazole (Flagyl) 500 Mg Tablet 2018-03-15 00:00:00 2018-03-20 00:00:00 Arielle Cartagena Md 500 Three Times A Day [facility] Glimepiride (Amaryl) 2 Mg Tablet Glimepiride (Amaryl) 2 Mg Tablet Yes 1 Daily [facility] Hydrochlorothiazide 25 Mg Tablet Hydrochlorothiazide 25 Mg Tablet Yes [facility] Lisinopril 10 Mg Tablet Lisinopril 10 Mg Tablet Yes 1 Daily [facility] Lovastatin 40 Mg Tablet Lovastatin 40 Mg Tablet Yes 1 Daily [facility] Niacin (Niaspan) 500 Mg Tablet. Niacin (Niaspan) 500 Mg Tablet. Yes 2 Daily [facility] Pantoprazole Sodium 40 Mg Tablet. Pantoprazole Sodium 40 Mg Tablet. Yes 1 Daily [facility] Procedures Procedure Date / Time Performed Performing Clinician Cullen jenni Laparoscopic cholecystectomy 2018-03-14 00:00:00 LOUIS MARTÍNEZ [facility] Magnetic resonance cholangiopancreatography (MRCP) wit hout contrast 2018-03-13 00:00:00 JAVIER IRIZARRY [facility] X-ray of chest, two views 2018-03-11 00:00:00 HIRAL SEMYOUR V [facility] US abdomen limited 2018-03-11 00:00:00 HIRAL SEYMOUR V [facility] Encounters Start Date/Time End Date/Time [facility] ID Source 2018-03-11 20:05:00 2018-03-15 18:42:00 Discharged Inpatient ER STAN CARTAGENA [facility] [id number] [facility] Results Test Description Test Time Test Comments Results Result Comments Source Bedside Glucose 2018-03-15 16:47:00 Test Item Bedside Glucose (test code = 51282-1) 195 70-120 Meter ID: [id number] 2018-03-15 06:15:00* Test Item Value Reference Range Interpretation Comments Sodium Level (test code = 2951-2) 138 136-145 [facility] HospitalPotassium Nrvav3545-76-44 06:15:00* Test Item Value Reference Range Interpretation Comments Potassium Level (test code = 2823-3) 4.2 3.5-5.1 [facility] HospitalChloride Eiher8528-30-12 06:15:00* Test Item Value Reference Range Interpretation Comments Chloride Level (test code = 2075-0) 104 98-107 [facility] HospitalCarbon Dioxide Dtdku8689-43-56 06:15:00* Test Item Value Reference Range Interpretation Comments Carbon Dioxide Level (test code = 2028-9) 25 22-29 [facility] HospitalAnion Mhn4011-09-40 06:15:00* Test Item Value Reference Range Interpretation Comments Anion Gap (test code = 46311-8) 13.2 8-16 [facility] HospitalBlood Urea Vetdxsku3956-11-53 06:15:00* Test Item Value Reference Range Interpretation Comments Blood Urea Nitrogen (test code = 3094-0) 11 7-26 [facility] HospitalCreatinine2018-05-04 06:15:00* Test Item Value Reference Range Interpretation Comments Creatinine (test code = 2160-0) 1.12 0.72-1.25 [facility] HospitalBUN/Creatinine Mqamy4841-68-02 06:15:00* Test Item Value Reference Range Interpretation Comments BUN/Creatinine Ratio (test code = 3097-3) 10 6-25 [facility] HospitalEstimat Glomerular Filtration Rate 2018-03-15 06:15:00* Test Item Value Reference Range Interpretation Comments Estimat Glomerular Filtration Rate (test code = 89750-9) 60- >60 Ranges were taken from the National Kidney Disease Education Program and the [facility] literature.Reference ranges:60 or greater: Jugxct74-83 ( for 3 consecutive months): Chronic kidney disease 15 or less: Kidney failureUT Health [facility] HospitalGlucose Staib3648-88-11 06:15:00* Test Item Value Reference Range Interpretation Comments Glucose Level (test code = MRO1617) 179 74-118 [facility] HospitalCalcium Aygra1507-97-11 06:15:00* Test Item Value Reference Range Interpretation Comments Calcium Level (test code = 03018-9) 8.9 8.4-10.2 [facility] HospitalTotal Wujwoprzn2460-71-95 06:15:00* Test Item Value Reference Range Interpretation Comments Total Bilirubin (test code = 1975-2) 1.3 0.2-1.2 [facility] HospitalAspartate Amino Transf (AST/SGOT) 2018-03-15 06:15:00* Test Item Value Reference Range Interpretation Comments Aspartate Amino Transf (AST/SGOT) (test code = Aspartate Amino Transf (AST/SGOT)) 59 5-34 [facility] HospitalAlanine Aminotransferase (ALT/SGPT) 2018-03-15 06:15:00* Test Item Value Reference Range Interpretation Comments Alanine Aminotransferase (ALT/SGPT) (test code = 1742-6) 83 0-55 [facility] HospitalTotal Rndiomi3908-12-76 06:15:00* Test Item Value Reference Range Interpretation Comments Total Protein (test code = 2885-2) 6.2 6.5-8.1 [facility] HospitalAlbumin2018-05-04 06:15:00* Test Item Value Reference Range Interpretation Comments Albumin (test code = 1751-7) 2.7 3.5-5.0 [facility] HospitalGlobulin2018-05-04 06:15:00* Test Item Value Reference Range Interpretation Comments Globulin (test code = 67394-7) 3.5 2.3-3.5 [facility] HospitalAlbumin/Globulin Wnrzb2579-18-94 06:15:00 * Test Item Value Reference Range Interpretation Comments Albumin/Globulin Ratio (test code = 1759-0) 0.8 0.8-2.0 [facility] HospitalAlkaline Vhkajypruvx7941-35-28 06:15:00* Test Item Value Reference Range Interpretation Comments Alkaline Phosphatase (test code = 6768-6) 223 40-150 [facility] HospitalBlood Emzukaj8688-98-21 16:46:00* Test Item Value Reference Range Interpretation Comments Blood Culture (test code = 97322721) NO GROWTH AFTER 72 HOURS [facility] HospitalDirect Yecorxfyy0412-85-70 12:20:00* Test Item Value Reference Range Interpretation Comments Direct Bilirubin (test code = 81069-3) 1.5 0.0-0.5 [facility] HospitalAmylase Oecqu7425-68-09 12:20:00* Test Item Value Reference Range Interpretation Comments Amylase Level (test code = 1798-8) 102 25-125 [facility] HospitalLipase2018-05-02 12:20:00* Test Item Value Reference Range Interpretation Comments Lipase (test code = 3040-3) 56 8-78 [facility] HospitalTriglycerides Qeajn3306-26-37 07:22:00* Test Item Value Reference Range Interpretation Comments Triglycerides Level (test code = 2571-8) 65 0-149 [facility] HospitalCholesterol Ifjlb5025-65-15 07:22:00* Test Item Value Reference Range Interpretation Comments Cholesterol Level (test code = 2093-3) 94 0-199 Less than 200 mg/dL Low Tlia936 - 239 mg/dL Borderline Ztwh116 m g/dl and greater High Risk [facility] HospitalLDL Jwlvzfkjqah4995-02-30 07:22:00* Test Item Value Reference Range Interpretation Comments LDL Cholesterol (test code = 2089-1) 56 60-130 [facility] HospitalHDL Hznpilpxktt6246-34-73 07:22:00* Test Item Value Reference Range Interpretation Comments HDL Cholesterol (test code = 2085-9) 25 40-60 [facility] HospitalCholesterol/HDL Ujnwt2313-58-34 07:22:00 * Test Item Value Reference Range Interpretation Comments Cholesterol/HDL Ratio (test code = 9830-1) 3.8 3.9-4.7 [facility] HospitalHemoglobin A1c Hrkfszy8084-35-04 06:36:00 * Test Item Value Reference Range Interpretation Comments Hemoglobin A1c Percent (test code = Hemoglobin A1c Percent) 6.2 4.0-7.0 [facility] HospitalWhite Blood Awakn9865-71-90 06:16:00* Test Item Value Reference Range Interpretation Comments White Blood Count (test code = 6690-2) 10.41 4.8-10.8 [facility] HospitalRed Blood Awutk1404-20-84 06:16:00* Test Item Value Reference Range Interpretation Comments Red Blood Count (test code = 789-8) 4.22 4.3-5.7 [facility] HospitalHemoglobin2018-05-01 06:16:00* Test Item Value Reference Range Interpretation Comments Hemoglobin (test code = 27375-9) 13.0 14.0-18.0 [facility] HospitalHematocrit2018-05-01 06:16:00* Test Item Value Reference Range Interpretation Comments Hematocrit (test code = 4544-3) 38.2 38.2-49.6 [facility] HospitalMean Corpuscular Omkhhz8033-49-18 06:16:00* Test Item Value Reference Range Interpretation Comments Mean Corpuscular Volume (test code = 787-2) 90.5 81-99 [facility] HospitalMean Corpuscular Ndzxybcvfg2804-71-28 06:16:00* Test Item Value Reference Range Interpretation Comments Mean Corpuscular Hemoglobin (test code = 785-6) 30.8 28-32 [facility] Concent 2018-03-12 06:16:00* Test Item Value Reference Range Interpretation Comments Mean Corpuscular Hemoglobin Concent (test code = 786-4) 34.0 31-35 [facility] HospitalRed Cell Distribution Vyrjm7842-38-42 06:16:00* Test Item Value Reference Range Interpretation Comments Red Cell Distribution Width (test code = 02987-8) 13.5 11.7 -14.4 [facility] HospitalPlatelet Relkd3890-03-56 06:16:00* Test Item Value Reference Range Interpretation Comments Platelet Count (test code = 777-3) 171 140-360 [facility] HospitalNeutrophils (%) (Auto)2018-03-12 06:16:00 * Test Item Value Reference Range Interpretation Comments Neutrophils (%) (Auto) (test code = 25965-7) 81.6 38.7-80.0 [facility] HospitalLymphocytes (%) (Auto)2018-03-12 06:16:00 * Test Item Value Reference Range Interpretation Comments Lymphocytes (%) (Auto) (test code = 736-9) 7.6 18.0-39.1 [facility] HospitalMonocytes (%) (Auto)2018-03-12 06:16:00* Test Item Value Reference Range Interpretation Comments Monocytes (%) (Auto) (test code = 5905-5) 9.6 4.4-11.3 [facility] HospitalEosinophils (%) (Auto)2018-03-12 06:16:00 * Test Item Value Reference Range Interpretation Comments Eosinophils (%) (Auto) (test code = 713-8) 0.5 0.0-6.0 [facility] HospitalBasophils (%) (Auto)2018-03-12 06:16:00* Test Item Value Reference Range Interpretation Comments Basophils (%) (Auto) (test code = 706-2) 0.4 0.0-1.0 [facility] HospitalIM GRANULOCYTES %2018-03-12 06:16:00* Test Item Value Reference Range Interpretation Comments IM GRANULOCYTES % (test code = IM GRANULOCYTES %) 0.3 0.0- 1.0 [facility] HospitalNeutrophils # (Auto)2018-03-12 06:16:00* Test Item Value Reference Range Interpretation Comments Neutrophils # (Auto) (test code = 751-8) 8.5 2.1-6.9 [facility] HospitalLymphocytes # (Auto)2018-03-12 06:16:00* Test Item Value Reference Range Interpretation Comments Lymphocytes # (Auto) (test code = 34367-1) 0.8 1.0-3.2 [facility] HospitalMonocytes # (Auto)2018-03-12 06:16:00* Test Item Value Reference Range Interpretation Comments Monocytes # (Auto) (test code = 742-7) 1.0 0.2-0.8 [facility] HospitalEosinophils # (Auto)2018-03-12 06:16:00* Test Item Value Reference Range Interpretation Comments Eosinophils # (Auto) (test code = 711-2) 0.1 0.0-0.4 [facility] HospitalBasophils # (Auto)2018-03-12 06:16:00* Test Item Value Reference Range Interpretation Comments Basophils # (Auto) (test code = 704-7) 0.0 0.0-0.1 [facility] HospitalAbsolute Immature Granulocyte (auto 2018-03-12 06:16:00* Test Item Value Reference Range Interpretation Comments Absolute Immature Granulocyte (auto (juju t code = Absolute Immature Granulocyte (auto) 0.03 0-0.1 [facility] HospitalUrine WWI9654-33-77 18:16:00* Test Item Value Reference Range Interpretation Comments Urine WBC (test code = 5821-4) 0-5 0-5 [facility] HospitalUrine QGL1843-62-01 18:16:00* Test Item Value Reference Range Interpretation Comments Urine RBC (test code = 07490-6) 0-5 0-5 [facility] HospitalUrine Ymuwwvik4622-42-19 18:16:00* Test Item Value Reference Range Interpretation Comments Urine Bacteria (test code = 25553-7) NONE NONE [facility] HospitalUrine Epithelial Hckhn6119-32-26 18:16:00 * Test Item Value Reference Range Interpretation Comments Urine Epithelial Cells (test code = 05405-6) RARE NONE [facility] HospitalUrine Hnlxt5675-67-78 18:16:00* Test Item Value Reference Range Interpretation Comments Urine Mucus (test code = 8247-9) MODERATE RARE [facility] HospitalUrine Jcizi0568-30-59 18:08:00* Test Item Value Reference Range Interpretation Comments Urine Color (test code = 5778-6) YELLOW YELLOW [facility] HospitalUrine Gzmwupd1109-60-80 18:08:00* Test Item Value Reference Range Interpretation Comments Urine Clarity (test code = 02407-4) SL CLOUDY CLEAR [facility] HospitalUrine Specific Wwfdfcb0221-49-25 18:08:00 * Test Item Value Reference Range Interpretation Comments Urine Specific Turpin (test code = 5811-5) 1.010 1.010-1.02 5 [facility] HospitalUrine jO2820-30-69 18:08:00* Test Item Value Reference Range Interpretation Comments Urine pH (test code = 35611-9) 7 5-7 [facility] HospitalUrine Leukocyte Olwiactn8217-69-75 18:08:00* Test Item Value Reference Range Interpretation Comments Urine Leukocyte Esterase (test code = 5799-2) NEGATIVE NEGATIVE [facility] HospitalUrine Qwvbmrr8847-21-43 18:08:00* Test Item Value Reference Range Interpretation Comments Urine Nitrite (test code = 19779-1) NEGATIVE NEGATIVE [facility] HospitalUrine Drvwyzs3324-54-09 18:08:00* Test Item Value Reference Range Interpretation Comments Urine Protein (test code = 5804-0) NEGATIVE NEGATIVE [facility] HospitalUrine Glucose (UA)2018-03-11 18:08:00* Test Item Value Reference Range Interpretation Comments Urine Glucose (UA) (test code = 2349-9) NEGATIVE NEGATIVE [facility] HospitalUrine Wypyzyo4298-80-64 18:08:00* Test Item Value Reference Range Interpretation Comments Urine Ketones (test code = 90557-0) NEGATIVE NEGATIVE [facility] HospitalUrine Scdcxhsamlxx5899-87-02 18:08:00* Test Item Value Reference Range Interpretation Comments Urine Urobilinogen (test code = 52925-4) 1 0.2-1 [facility] HospitalUrine Cvewlglgp2425-91-32 18:08:00* Test Item Value Reference Range Interpretation Comments Urine Bilirubin (test code = 1978-6) 1+ NEGATIVE Confirmatory test currently unavailable. False positive results may occur.[facility] HospitalUrine Skvln4488-81-28 18:08:00* Test Item Value Reference Range Interpretation Comments Urine Blood (test code = 11348-5) NEGATIVE NEGATIVE [facility] HospitalLactic Acid Umndg3506-63-49 15:06:00* Test Item Value Reference Range Interpretation Comments Lactic Acid Level (test code = Lactic Acid Level) 18.2 4.5- 19.8 [facility] HospitalInfluenza Virus Types A,B Antigen 2018-03-11 15:03:00* Test Item Value Reference Range Interpretation Comments Influenza Virus Types A,B Antigen (test code = 79142-6) NEGATIVE NEGATIVE [facility] HospitalMRI MRCP WO [place] [address] Patient Name: JOE NEGRETE MR #: [id number] : 1940 Age/Sex: 77/M Req #: [id number] Adm Physician: STAN CARTAGENA MD Ordered by: JAVIER IRIZARRY MD Report #: [id number] Location: [facility] Room/Bed: [place] [address] Procedure: [id number] MRI /MRI MRCP WO Exam Date: Exam Time: REPORT ST ATUS: Signed MRCP CPT code: 34187 History: Chills, type 2 diabetes, stage III diabetic nephropathy, left nephrectomy, cholestatic picture on HIDA scan Comparison: Hida scan 03/12/2018, right upper quadrant ultrasound 2017. Technique: Multiplanar, multisequence images of the abdomen were obta ined per MRCP protocol. 3D volume rendered reformation images of the biliary tree were performed. No intravenous gadolinium was administered. Findin gs: Biliary tree: No intrahepatic biliary ductal dilatation. Cystic duct is normal in morphology and appears patent.. Common bile duct: Measures 5 mm in diameter and tapers as it approaches the ampulla. No evidence of strictur e or beading of the biliary tree. No intraluminal filling defect. The beaver creas duct is normal in diameter and morphology. Gallbladder: Present and c ontains multiple subcentimeter gallstones. There is diffuse gallbladder wall t hickening and several punctate foci of increased T2 signal in the fundus which could represent adenomyomatosis. Liver: No significant steatosis. No hepat ic mass. Spleen: Normal size and signal without mass Pancreas: Normal T2 si gnal without mass or ductal dilatation. Kidneys: The left kidney is absent. N o mass in the nephrectomy bed. The right kidney demonstrates an extrarenal pel vis and mild perinephric inflammation. High T2 signal lesion in the upper pole measures 12 mm. High T2 signal lesion in the lower pole measures 2 to 3 mm. T hese were not visible on ultrasound. Adrenal glands: No evidence of mass. Bowel: Stomach and visualized portions of the small bowel and large bowel are normal in diameter with normal wall thickness. Lymph nodes: No lymphaden opathy. Peritoneum/retroperitoneum: No evidence of free fluid or fluid laura ection. Lung bases: Clear. Bones: Diffuse degenerative disc disease. T here is mild extra scoliosis of the lumbar spine. Marrow signal is normal. No focal osseous lesions. Soft tissues: Hernia through the posterolateral left abdominal wall contains fat with an aperture of 3.2 cm. IMPRESSION: 1. No evidence of choledocholithiasis, biliary ductal dilatation or biliary stricture. 2. Cholelithiasis and thickening of the gallbladder almaraz with agustin picion for adenomyomatosis. 3. Right extrarenal pelvis. Subcentimeter high T 2 signal lesions in the right kidney may represent cysts. Thank you for y our referral. Signed by: Dr. Maira Le MD on 03/13/2018 2:57 PM Dictated By: MAIRA LE MD 56 Transcribed By: MARVIN on 03/13/181456 COPY TO: JAVIER IRIZARRY MD HEPTOBILIARY W PHARM [place] [address] Patient Name: JOE NEGRETE MR #: [id number] : 1940 Age/Sex: 77/M Req #: [id number] Adm Physician: STAN CARTAGENA MD Ordered by: STAN CARTAGENA MD Report #: [id number] Location: [facility] Room/Bed: [place] [address] Procedure: [id number] NM/H EPTOBILIARY W PHARM Exam Date: 03/12/18 Exam Time: 1 100 REPORT STATUS: Signed EXAM: HIDA Scan INDICATION: 77 M with ab normal liver function tests Report: Following the administration of 7.5 mCi of Tc-99m mebrofenin, dynamic images of the abdomen in the anterior projection were obtained through 100 minutes. Perfusion of the liver is normal. Extraction of tracer from the blood pool by the liver parenchyma is mildly pro longed. Tracer does not appear in the biliary tract through 100 minutes. Mor phine sulfate 4 mg was given IV slow push after 100 minutes (thinking there mi ght be some tracer in the biliary tract but there was not) and additional imag ing was obtained through 30 minutes. Again no tracer is seen in the biliary t ract. Impression: Scan findings show cholestasis. Without tracer henry earing in the biliary tract, filling of the gallbladder cannot be assessed. Signed by: Dr. Henri Diallo M.D. on 03/12/2018 3:43 PM Dictated By: Rian DIALLO MD 42 Transc ribed By: MARVIN on 03/12/181542 COPY TO: STAN CARTAGENA MD CHEST 2 VIEWS [place] [address] Patient Name: JOE NEGRETE MR #: [id number] : 1940 Age/Sex: 77/M Req #: [id number] Adm Physician: Ordered by: HIRAL SEYMOUR MD Report #: [id number] Location: ER Room/Bed: Procedure: [id number] DX/CHEST 2 VIEWS Exam D ate: Exam Time: REPORT STATUS: Signed PROC EDURE: Frontal and lateral views of the chest. COMPARISON: Patients [facility], DX, CHEST SINGLE (PORTABLE), 02/03/2017, 21:47. INDICATIONS: DIZZY, CHEST PAIN FOR 1 WEEK FINDINGS: Lines/tubes: None. Lungs: Mild bibasilar subsegmental atelectasis. There is no evidence of pneum onia or pulmonary edema. Pleura: There is no pleural effusion or pneumoth orax. Heart and mediastinum: The heart and the mediastinum are normal. Bones: No acute bony abnormality. IMPRESSION: 1. Mild bibasil ar subsegmental atelectasis Sharon Benitez M.D. Dictated by : Sharon Benitez M.D. on 03/11/2018 at 14:28 Electronically approv ed by: Sharon Benitez M.D. on 03/11/2018 at 14:28 Dicta dixie By: YEISON BENITEZ MD, MD 27 Transcribed By: MARY on 03/11/181427 COPY TO: HIRAL SEYMOUR MD US ABDOMEN LIMITED [place] [address] Patient Name: JOE NEGRETE MR #: [id number] : 1940 Age/Sex: 77/M Req #: [id number] Adm Physician: Ordered by: HIRAL SEYMOUR MD Report #: [id number] Location: ER Room/Bed: Procedure: [id number] US/US ABDOMEN LIMITED E xam Date: 03/11/18 Exam Time: 1700 REPORT STATU S: Signed EXAM: Right Upper Quadrant Ultrasound INDICATION: Elevated liver enzymes COMPARISON: None. TECHNIQUE: Transverse and longitudinal images of the right upper abdomen were obtained. FINDINGS: Liver: Size: 15.2 cm in the right midclavicular line, normal Appearance: Mildly increased e chogenicity, smooth contour Mass: No focal masses Gallbladder: Stones/S ludge: Shadowing calculi are present within the gallbladder lumen. There is al so ringdown artifact along the gallbladder wall which may represent adenomyoma tosis. Wall: 0.5 cm, thickened. Appearance: No wall thickening, pericholecys tic fluid or hydrops. Sonographic Hanson's Sign: Negative Bile Ducts: Intrahepatic Ducts: No dilatation Extrahepatic Ducts: Common bile duct measur es 0.4 cm, no dilatation Pancreas: Visualized portions of the pancreatic head, neck and proximal body are normal. Kidneys: Length: Right 12.6 c m Echogenicity: Normal Collecting System: No hydronephrosis Stone: None Cyst/Mass: None Vessels: Aorta: Visualized portions are n ormal Inferior Vena Cava: Visualized portions are normal Main Portal Vein: 0 .9 cm, normal size with hepatopetal flow. Free Fluid: No ascites or pleur al effusion IMPRESSION: 1. Cholelithiasis. Gallbladder wall thickening may be in part related to adenomyomatosis, however, chronic cholecystitis is within the differential diagnosis. No biliary dilatation. 2. Mildly incre ased echogenicity of the hepatic parenchyma may represent steatosis. Sign ed by: Dr. Sharon Benitez M.D. on 03/11/2018 5:51 PM Dictated By: Chayito BENITEZ MD, MD 50 Transcribed By: MARVIN on 03/11/181750 COPY TO: HIRAL SEYMOUR MD
[2020-03-29] MEDS ORDERED: TETANUS/DIPHTHERIA TOX ADULT 0.5 ML SYR IM ONE (09:30)
[2020-03-29] MEDS ORDERED: LIDOCAINE 1% 5ML-MPF INJ ONE (09:30)
[2020-03-29] MEDS ORDERED: SODIUM CHLORIDE 0.9% IRRIG 3,000 ML BAG IR STA (09:52)
--- NOTE | 2020-03-29 09:58 | Emergency Department Note ---
History of Present Illnes History of Present Illness Chief Complaint: General Medicine Complaints History of Present Illness This is a 79 year old male presents to the ED for dog bite of the L hand by neighbors pet. AC not contacted per patient. 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 Any updates have been documented here. Past Medical History Recent Fever: No Clinical Suspicion of Infectio: No Past Medical History: Hypertension, Diabetes, Chronic Kidney Disease Other Surgery: L KIDNEY REMOVED, PROSTATE, DENTAL Social History Smoking Cessation: Never Smoker Alcohol Use: None Other Last Tetanus: utd Review of Systems Review of Systems Constitutional: no symptoms EENTM: no symptoms Cardiovascular: no symptoms Respiratory: no symptoms Gastrointestinal: no symptoms Genitourinary: no symptoms Musculoskeletal: no symptoms Neurological: no symptoms Psychological: no symptoms Endocrine: no symptoms Hematological/Lymphatic: no symptoms Review of other systems All other systems reviewed and negative. Physical Exam Related Data Allergies: Coded Allergies: No Known Drug Allergies (Verified Allergy, Unknown, 03/11/18) Triage Vital Signs Vital Signs Date Time Temp Pulse Resp B/P (MAP) Pulse Ox O2 Delivery O2 Flow Rate FiO2 03/29/20 09:15 98.1 84 18 180/84 96 Vital signs reviewed: Yes Physical Exam CONSTITUTIONAL Constitutional: well-developed, well-nourished HENT HENT: normocephalic, atraumatic, oropharynx clear/moist, nose normal HENT L/R: left ext ear normal, right ext ear normal EYES Eyes: PERRL, conjunctivae normal NECK Neck: ROM normal PULMONARY Pulmonary: effort normal, breath sounds normal CARDIOVASCULAR Cardiovascular: regular rhythm, heart sounds normal, capillary refill normal, normal rate GASTROINTESTINAL Abdominal: soft, nontender, bowel sounds normal GENITOURINARY Genitourinary: exam deferred SKIN Skin: other (4 cm laceration dorsal aspect left hand) MUSCULOSKELETAL Musculoskeletal: ROM normal NEUROLOGICAL Neurological: alert, oriented x 3, no gross motor or sensory deficits PSYCHOLOGICAL Psychological: mood/affect normal, judgement normal Procedures Laceration Laceration: Laceration 1 Site: hand Side: left Size (cm): 4 Description: linear Depth: simple, single layer Local anesthesia: lidocaine 1% Pre-repair: wound exposed, irrigated extensively Skin layer closed with: nylon Size (cm): 5-0 Number of sutures: 8 Technique: simple, interrupted Assessment & Plan Assessment & Plan Problems: (1) Dog bite of left hand (2) Laceration Assessment & Plan Rx Augmentin Patient to f/u in 7-10 days with PCP for suture removal Depart Disposition: HOME, SELF-[facility] Meds Active Scripts Acetaminophen With Codeine (TYLENOL WITH CODEINE #3 TABLET) 1 Each Tablet, 300 MG PO Q8HR PRN for PAIN for 5 Days, TAB Prov:STAN CARTAGENA MD 03/15/18 Metronidazole (FLAGYL) 500 Mg Tablet, 500 MG PO TID for 5 Days Prov:STAN CARTAGENA MD 03/15/18 Cephalexin Monohydrate (KEFLEX) 500 Mg Capsule, 500 MG PEG DAILY for 5 Days Prov:STAN CARTAGENA MD 03/15/18 Reported Medications Lisinopril (Lisinopril) 10 Mg Tablet, 1 TAB PO DAILY 08/18/11 Pantoprazole Sodium (Pantoprazole Sodium) 40 Mg Tablet.dr, 1 TAB PO DAILY 08/18/11 Hydrochlorothiazide (Hydrochlorothiazide) 25 Mg Tablet 08/18/11 Glimepiride (Amaryl) 2 Mg Tablet, 1 TAB PO DAILY 08/18/11 Lovastatin (Lovastatin) 40 Mg Tablet, 1 TAB PO DAILY 08/18/11 Niacin (Niaspan) 500 Mg Tablet.sa, 2 TAB PO DAILY 08/18/11 Medications in the ED Tetanus/ Diphtheria Toxoids 0.5 ml ONCE ONCE IM Last administered on 03/29/20 10:05; Admin Dose 0.5 ML; Start 03/29/20 at 09:30; Stop 03/29/20 at 10:43; Status DC Lidocaine HCl 5 mg ONCE ONCE INJ Last administered on 03/29/20at 10:05; Admin Dose 5 MG; Start 03/29/20 at 09:30; Stop 03/29/20 at 10:43; Status DC Sodium Chloride 500 ml ONCE STAT IR Last administered on 03/29/20at 10:05; Admin Dose 500 ML; Start 03/29/20 at 09:52; Stop 03/29/20 at 10:43; Status DC Lidocaine HCl 20 ml STK-MED ONCE .ROUTE ; Start 03/29/20 at 10:06; Stop 03/29/20 at 10:01; Status DC PETER HARRIS DO March 29, 2020 09:23
[2020-03-29] MEDS ORDERED: LIDOCAINE HCL 1% LOCAL INJ 20 ML VIAL ONE (10:06)
== END 2020-03-29 10:43 | disposition home or self-care (01) ==
LOC: ER 09:10
DX: S61.412A Laceration without foreign body of left hand, initial encounter (principal); W54.0XXA Bitten by dog, initial encounter; Y92.008 Other place in unspecified non-institutional (private) residence as the place of occurrence of the external cause; I10 Essential (primary) hypertension; E11.65 Type 2 diabetes mellitus with hyperglycemia
CPT/HCPCS: 90471; 90714; 99284; J2001

== ENCOUNTER → 2020-06-11 | Outpatient (CLI) | payer MEDICARE ==
--- NOTE | 2020-06-11 10:51 | Diagnostic Imaging Report ---
Exam: KUB - 2 views Indication: Renal calculus Comparison: Abdominal ultrasound of 03/11/2018, report of CT abdomen pelvis 08/23/2009 (images not available for comparison) Findings: Nonspecific 1.7 cm rim calcified density in the right abdomen is unlikely to be renal. No radiographically apparent urinary calculi. Surgical clips overlie the left abdomen. Nonobstructive bowel gas pattern. No free air. No acute osseous injury. Degenerative changes of the visualized spine. Impression: No radiographically apparent urinary calculi. Nonspecific 1.7 cm rim calcified density in the right abdomen. Signed by: Kimani Carrillo MD on 06/11/2020 10:48 AM
== END ==
LOC: RAD 10:24
PROVIDERS: ATTEND Urology
DX: N20.0 Calculus of kidney (principal)
CPT/HCPCS: 74018

== ENCOUNTER → 2021-05-06 | Outpatient (CLI) | payer MEDICARE | LOC: RAD 08:56 | PROVIDERS: ATTEND Urology | DX: N20.0 Calculus of kidney (principal) | CPT/HCPCS: 74018 ==

== ENCOUNTER → 2022-05-08 | Outpatient (CLI) | payer MEDICARE | LOC: DX 09:06 | PROVIDERS: ATTEND Family Medicine | DX: N20.0 Calculus of kidney (principal) | CPT/HCPCS: 74018 ==